=== PATIENT | female | born 1955 | race Hispanic/Latino ===

== ENCOUNTER 2018-12-27 08:36 | Emergency (ER) | payer BC ==
[2018-12-27] MEDS ORDERED: LIDOCAINE 5% TOPICAL PATCH TP ONE (09:17)
[2018-12-27] MEDS ORDERED: ACETAMINOPHEN EXTRA STRENGTH 500 MG TABLET ONE (09:17)
[2018-12-27] MEDS ORDERED: DIAZEPAM 5 MG TABLET ONE (09:18)
== END 2018-12-27 10:11 | disposition home or self-care (01) ==
LOC: EDH 08:36
DX: M62.838 Other muscle spasm (principal); I10 Essential (primary) hypertension; E78.5 Hyperlipidemia, unspecified; Z98.890 Other specified postprocedural states

== ENCOUNTER → 2025-02-23 | Outpatient (CLI) | payer MEDICARE, OTHER ==
--- NOTE | 2025-02-23 15:49 | HMCIMG ---
DEXA BONE DENSITY SURVEY HISTORY: Osteoporosis COMPARISON: None FINDINGS: Bone densitometry study was performed. Bone mineral density of the lumbar spine is 0.748 gram per centimeter square which corresponds to a T score of -2.7 and a Z score of -0.7. Bone mineral density of the left hip is 0.831 grams per centimeter square which corresponds to a T score of -0.9 and a Z score of 0.5. IMPRESSION: 1. Normal bone mineral density of the left and osteoporosis of lumbar spine.
== END | disposition home or self-care (01) ==
LOC: RAH 14:10
PROVIDERS: ATTEND Internal Medicine
DX: M81.0 Age-related osteoporosis without current pathological fracture (principal); N95.9 Unspecified menopausal and perimenopausal disorder
CPT/HCPCS: 77080